=== PATIENT | female | born 1970 | race Caucasian/White ===

== ENCOUNTER 2023-01-06 14:36 | Emergency (ER) | payer MEDICARE, MEDICAID ==
[2023-01-06] MEDS ORDERED: Lactated Ringers 1,000 ML IV ONE (15:00)
[2023-01-06 15:50] LABS: BASOPHILS PERCENT AUTO 0.3 % (0.0-1.5); EOSINOPHILS ABSOLUTE AUTO 0.2 K/uL (0.0-0.7); HEMATOCRIT 44.1 % (36.0-46.0); LYMPHOCYTES ABSOLUTE AUTO 1.9 K/uL (0.6-2.4); LYMPHOCYTES PERCENT AUTO 32.1 % (16.0-40.0); MEAN CORPUSCULAR HEMOGLOBIN 30.5 pg (27.0-32.0); MEAN CORPUSCULAR VOLUME 89.8 fL (80.0-98.0); MONOCYTES ABSOLUTE AUTO 0.5 K/uL (0.0-0.8); NEUTROPHILS ABSOLUTE AUTO 3.3 K/uL (1.4-5.7); NEUTROPHILS PERCENT AUTO 55.6 % (48.0-80.0); NRBC ABSOLUTE 0 K/uL; PLATELET COUNT,PLT 266 K/uL (150-400); RED BLOOD CELL COUNT 4.91 M/uL (4.30-5.90); WHITE BLOOD CELL COUNT,WBC 5.99 K/uL (4.0-11.0)
[2023-01-06 16:24] LABS: A/G RATIO 0.9 (0.9-1.6); ALBUMIN 3.3 g/dL (3.4-5.0); BILIRUBIN TOTAL 0.4 mg/dL (0.2-1.0); CALCIUM 8.1 mg/dL (8.5-10.1); CARBON DIOXIDE,CO2 31.8 mmol/L (21.0-32.0); CREATININE 0.8 mg/dL (0.6-1.0); EST CRCL DRUG DOSING (CG) 74.02 mL/min; POTASSIUM,K 4.2 mmol/L (3.5-5.1); PROTEIN TOTAL,TP 7.1 g/dL (6.4-8.2)
== END 2023-01-06 18:16 | disposition home or self-care (01) ==
LOC: MW.ED 14:36
DX: R42 Dizziness and giddiness (principal); I12.9 Hypertensive chronic kidney disease with stage 1 through stage 4 chronic kidney disease, or unspecified chronic kidney disease; E11.22 Type 2 diabetes mellitus with diabetic chronic kidney disease; N18.9 Chronic kidney disease, unspecified; M06.9 Rheumatoid arthritis, unspecified; E11.40 Type 2 diabetes mellitus with diabetic neuropathy, unspecified; F17.210 Nicotine dependence, cigarettes, uncomplicated; Z88.6 Allergy status to analgesic agent; Z88.8 Allergy status to other drugs, medicaments and biological substances; Z79.82 Long term (current) use of aspirin; Z79.899 Other long term (current) drug therapy
CPT/HCPCS: 36415; 71046; 80053; 83735; 83880; 84484; 84703; 85025; 93005; 96360; 99284; J7120; 93010; 99283

== ENCOUNTER 2023-05-12 04:54 | Emergency (ER) | payer MEDICARE, MEDICAID | END 2023-05-12 07:13 | disposition left against medical advice (07) | LOC: MW.ED 04:54 | DX: Z53.21 Procedure and treatment not carried out due to patient leaving prior to being seen by health care provider (principal) ==

== ENCOUNTER 2023-05-12 19:13 | Emergency (ER) | payer MEDICARE, MEDICAID | END 2023-05-12 20:39 | disposition home or self-care (01) | LOC: MW.ED 19:13 | DX: L30.9 Dermatitis, unspecified (principal); I10 Essential (primary) hypertension; E11.40 Type 2 diabetes mellitus with diabetic neuropathy, unspecified; F17.210 Nicotine dependence, cigarettes, uncomplicated; Z88.5 Allergy status to narcotic agent; Z88.6 Allergy status to analgesic agent; Z79.82 Long term (current) use of aspirin; Z79.899 Other long term (current) drug therapy | CPT/HCPCS: 99282; 99283 ==

== ENCOUNTER 2023-06-28 08:31 | Day surgery (SDC) | payer MEDICARE, MEDICAID ==
[~2023-06-28 08:31] MED LIST: Lactated Ringers 1,000 ML IV SCH; propofoL 50 ML ONE
[2023-06-28] MEDS ORDERED: Propofol 200 MG/20 ML SDV ONE ×5 (10:01→10:46)
== END 2023-06-28 12:02 | disposition home or self-care (01) ==
LOC: MW.SDS 08:31
PROVIDERS: ATTEND Surgery
DX: D12.0 Benign neoplasm of cecum (principal); D12.2 Benign neoplasm of ascending colon; D12.6 Benign neoplasm of colon, unspecified; K62.1 Rectal polyp; K21.9 Gastro-esophageal reflux disease without esophagitis; K44.9 Diaphragmatic hernia without obstruction or gangrene; K22.89 Other specified disease of esophagus; K29.50 Unspecified chronic gastritis without bleeding; K64.8 Other hemorrhoids; E11.22 Type 2 diabetes mellitus with diabetic chronic kidney disease; I12.9 Hypertensive chronic kidney disease with stage 1 through stage 4 chronic kidney disease, or unspecified chronic kidney disease; N18.9 Chronic kidney disease, unspecified; J44.9 Chronic obstructive pulmonary disease, unspecified; G47.30 Sleep apnea, unspecified; F41.9 Anxiety disorder, unspecified; F32.A Depression, unspecified; E78.5 Hyperlipidemia, unspecified; M06.9 Rheumatoid arthritis, unspecified; E66.9 Obesity, unspecified; F17.210 Nicotine dependence, cigarettes, uncomplicated; Z87.11 Personal history of peptic ulcer disease; Z80.0 Family history of malignant neoplasm of digestive organs; Z88.5 Allergy status to narcotic agent; Z88.8 Allergy status to other drugs, medicaments and biological substances; Z79.82 Long term (current) use of aspirin; Z79.899 Other long term (current) drug therapy; Z79.85 Long-term (current) use of injectable non-insulin antidiabetic drugs; Z90.49 Acquired absence of other specified parts of digestive tract; Z68.39 Body mass index [BMI] 39.0-39.9, adult
CPT/HCPCS: 43239; 45380; 45385; 82947; J2704; J7120; 00813

== ENCOUNTER 2023-06-29 08:52 | Emergency (ER) | payer MEDICARE, MEDICAID ==
[2023-06-29] MEDS ORDERED: hydrALAZINE 20 MG/ML SDV IVPUSH ONE (09:17)
[2023-06-29 09:21] LABS: BASOPHILS ABSOLUTE AUTO 0.06 K/uL (0.00-0.20); BASOPHILS PERCENT AUTO 0.7 % (0.0-1.0); EOSINOPHILS ABSOLUTE AUTO 0.27 K/uL (0.00-0.45); EOSINOPHILS PERCENT AUTO 3.3 % (0.0-6.0); HEMATOCRIT 44.9 % (37.0-47.0); HEMOGLOBIN 16.3 g/dL (12.0-16.0); IMMATURE GRAN ABSOLUTE AUTO 0.02 K/uL (0.00-0.05); IMMATURE GRAN PERCENT AUTO 0.2 % (0.0-0.4); LYMPHOCYTES PERCENT AUTO 23.5 % (24.0-44.0); MEAN CORPUSCULAR HEMOGLOBIN 31.7 pg (28.0-32.0); MEAN CORPUSCULAR HGB CONC 36.3 g/dL (32.0-36.0); MEAN CORPUSCULAR VOLUME 87.2 fL (83.0-99.0); MEAN PLATELET VOLUME 8.9 fL (9.4-12.3); MONOCYTES ABSOLUTE AUTO 0.61 K/uL (0.00-0.80); MONOCYTES PERCENT AUTO 7.6 % (0.0-8.0); NEUTROPHILS ABSOLUTE AUTO 5.21 K/uL (1.80-7.70); NEUTROPHILS PERCENT AUTO 64.7 % (41.0-71.0); PLATELET COUNT,PLT 321 K/uL (150-400); RED BLOOD CELL COUNT 5.15 M/uL (4.10-5.30); WHITE BLOOD CELL COUNT,WBC 8.07 K/uL (3.9-11.3)
[2023-06-29 09:31] LABS: A/G RATIO 0.8 (0.9-1.6); ALBUMIN 3.7 g/dL (3.4-5.0); BILIRUBIN TOTAL 0.4 mg/dL (0.2-1.0); CALCIUM 9.3 mg/dL (8.5-10.1); CARBON DIOXIDE,CO2 28.4 mmol/L (21.0-32.0); CREATININE 0.8 mg/dL (0.6-1.0); EST CRCL DRUG DOSING (CG) 74.02 mL/min; POTASSIUM,K 3.6 mmol/L (3.5-5.1); PROTEIN TOTAL,TP 8.2 g/dL (6.4-8.2)
[2023-06-29] MEDS ORDERED: Iopamidol 755 Mg/ML 100 ML Bottle IVPUSH ONE (10:14)
== END 2023-06-29 11:19 | disposition home or self-care (01) ==
LOC: MW.ED 08:52
DX: R10.30 Lower abdominal pain, unspecified (principal); I10 Essential (primary) hypertension; E78.00 Pure hypercholesterolemia, unspecified; J44.9 Chronic obstructive pulmonary disease, unspecified; K21.9 Gastro-esophageal reflux disease without esophagitis; M06.9 Rheumatoid arthritis, unspecified; E11.9 Type 2 diabetes mellitus without complications; E66.9 Obesity, unspecified; Z68.39 Body mass index [BMI] 39.0-39.9, adult; Z88.6 Allergy status to analgesic agent; Z88.5 Allergy status to narcotic agent; Z88.8 Allergy status to other drugs, medicaments and biological substances; Z79.899 Other long term (current) drug therapy; Z79.82 Long term (current) use of aspirin; Z98.890 Other specified postprocedural states
CPT/HCPCS: 36415; 74177; 80053; 85025; 96374; 99284; J0360; Q9967

== ENCOUNTER 2023-11-12 16:44 | Emergency (ER) | payer MEDICARE, MEDICAID ==
[2023-11-12] MEDS: Sodium Chloride 0.9% 1,000 ML IV STA (17:58)
[2023-11-12] MEDS: Sodium Chloride 0.9% 2.5 ML Syringe FLUSH PRN (17:58)
[2023-11-12] MEDS: Sodium Chloride 0.9% 10 ML Syringe FLUSH PRN (17:59)
[2023-11-12 18:07] LABS: APPEARANCE,URINE CLEAR; BILIRUBIN,URINE NEGATIVE (NEGATIVE); COLOR,URINE YELLOW; GLUCOSE,URINE >=1000 mg/dL (NEGATIVE); KETONES,URINE NEGATIVE (NEGATIVE); LEUKOCYTE ESTERASE,URINE NEGATIVE (NEGATIVE); NITRITE,URINE NEGATIVE (NEGATIVE); OCCULT BLOOD,URINE NEGATIVE (NEGATIVE); PH,URINE 5.5 (5.0-8.0); PROTEIN,URINE NEGATIVE (NEGATIVE); UROBILINOGEN,URINE 0.2 EU/dL (<2.0)
[2023-11-12 18:26] LABS: BASOPHILS ABSOLUTE AUTO 0.03 K/uL (0.00-0.20); BASOPHILS PERCENT AUTO 0.5 % (0.0-1.0); EOSINOPHILS PERCENT AUTO 1.8 % (0.0-6.0); HEMATOCRIT 44.8 % (37.0-47.0); HEMOGLOBIN 15.5 g/dL (12.0-16.0); IMMATURE GRAN ABSOLUTE AUTO 0.04 K/uL (0.00-0.05); IMMATURE GRAN PERCENT AUTO 0.7 % (0.0-0.4); LYMPHOCYTES ABSOLUTE AUTO 1.35 K/uL (1.00-4.80); LYMPHOCYTES PERCENT AUTO 24.7 % (24.0-44.0); MEAN CORPUSCULAR HEMOGLOBIN 31.1 pg (28.0-32.0); MEAN CORPUSCULAR HGB CONC 34.6 g/dL (32.0-36.0); MEAN CORPUSCULAR VOLUME 89.8 fL (83.0-99.0); MONOCYTES ABSOLUTE AUTO 0.73 K/uL (0.00-0.80); MONOCYTES PERCENT AUTO 13.3 % (0.0-8.0); NEUTROPHILS ABSOLUTE AUTO 3.22 K/uL (1.80-7.70); PLATELET COUNT,PLT 315 K/uL (150-400); RED BLOOD CELL COUNT 4.99 M/uL (4.10-5.30); WHITE BLOOD CELL COUNT,WBC 5.47 K/uL (3.9-11.3)
[2023-11-12 18:54] LABS: INR 0.96 (0.86-1.11)
[2023-11-12 19:14] LABS: A/G RATIO 0.8 (0.9-1.6); ALBUMIN 3.4 g/dL (3.4-5.0); BILIRUBIN TOTAL 0.3 mg/dL (0.2-1.0); CALCIUM 9.2 mg/dL (8.5-10.1); CARBON DIOXIDE,CO2 29.3 mmol/L (21.0-32.0); CREATININE 0.9 mg/dL (0.6-1.0); EST CRCL DRUG DOSING (CG) 65.8 mL/min; POTASSIUM,K 4.5 mmol/L (3.5-5.1); PROTEIN TOTAL,TP 7.5 g/dL (6.4-8.2)
[2023-11-12] MEDS: Iopamidol 755 MG/ML 500 ML Multipack Bottle IVPUSH STA (19:37)
== END 2023-11-12 20:22 | disposition left against medical advice (07) ==
LOC: MW.ED 16:44
DX: B43.2 Subcutaneous pheomycotic abscess and cyst (principal); I10 Essential (primary) hypertension; J44.9 Chronic obstructive pulmonary disease, unspecified; E66.9 Obesity, unspecified; E11.9 Type 2 diabetes mellitus without complications; Z88.6 Allergy status to analgesic agent; Z88.8 Allergy status to other drugs, medicaments and biological substances; Z79.899 Other long term (current) drug therapy; Z90.49 Acquired absence of other specified parts of digestive tract; Z90.710 Acquired absence of both cervix and uterus; Z68.39 Body mass index [BMI] 39.0-39.9, adult; X50.1XXA Overexertion from prolonged static or awkward postures, initial encounter
CPT/HCPCS: 36415; 74177; 80053; 81003; 83690; 85025; 85610; 96360; 99284; J3490; J7030; Q9967

== ENCOUNTER 2023-11-23 10:43 | Emergency (ER) | payer MEDICARE, MEDICAID ==
[2023-11-23] MEDS: Ondansetron 4 MG/2 ML SDV IVPUSH ONE (11:36)
[2023-11-23 11:56] LABS: A/G RATIO 0.8 (0.9-1.6); ALBUMIN 3.4 g/dL (3.4-5.0); BILIRUBIN TOTAL 0.3 mg/dL (0.2-1.0); CALCIUM 7.9 mg/dL (8.5-10.1); CREATININE 1.7 mg/dL (0.6-1.0); EST CRCL DRUG DOSING (CG) 34.44 mL/min; POTASSIUM,K 3.6 mmol/L (3.5-5.1); PROTEIN TOTAL,TP 7.6 g/dL (6.4-8.2)
[2023-11-23 12:03] LABS: BASOPHILS ABSOLUTE AUTO 0.04 K/uL (0.00-0.20); BASOPHILS PERCENT AUTO 0.5 % (0.0-1.0); EOSINOPHILS ABSOLUTE AUTO 0.14 K/uL (0.00-0.45); EOSINOPHILS PERCENT AUTO 1.8 % (0.0-6.0); HEMATOCRIT 47.1 % (37.0-47.0); HEMOGLOBIN 16.2 g/dL (12.0-16.0); IMMATURE GRAN ABSOLUTE AUTO 0.02 K/uL (0.00-0.05); IMMATURE GRAN PERCENT AUTO 0.3 % (0.0-0.4); LYMPHOCYTES ABSOLUTE AUTO 1.26 K/uL (1.00-4.80); MEAN CORPUSCULAR HEMOGLOBIN 30.7 pg (28.0-32.0); MEAN CORPUSCULAR HGB CONC 34.4 g/dL (32.0-36.0); MEAN CORPUSCULAR VOLUME 89.2 fL (83.0-99.0); MEAN PLATELET VOLUME 9.4 fL (9.4-12.3); MONOCYTES ABSOLUTE AUTO 0.86 K/uL (0.00-0.80); MONOCYTES PERCENT AUTO 10.9 % (0.0-8.0); NEUTROPHILS ABSOLUTE AUTO 5.56 K/uL (1.80-7.70); NEUTROPHILS PERCENT AUTO 70.5 % (41.0-71.0); PLATELET COUNT,PLT 346 K/uL (150-400); RED BLOOD CELL COUNT 5.28 M/uL (4.10-5.30); WHITE BLOOD CELL COUNT,WBC 7.88 K/uL (3.9-11.3)
[2023-11-23] MEDS: Iopamidol 755 Mg/ML 100 ML Bottle IVPUSH ONE (12:13)
[2023-11-23] MEDS: Sodium Chloride 0.9% 1,000 ML IV ONE ×2 (12:39→14:13)
[2023-11-23] MEDS: Cephalexin 500 MG Cap PO STA (14:13)
[2023-11-23] MEDS: Doxycycline 100 MG Cap PO STA (14:13)
[2023-11-23 16:09] LABS: CALCIUM 7.3 mg/dL (8.5-10.1); CARBON DIOXIDE,CO2 26.7 mmol/L (21.0-32.0); CREATININE 1.2 mg/dL (0.6-1.0); EST CRCL DRUG DOSING (CG) 48.79 mL/min; POTASSIUM,K 3.4 mmol/L (3.5-5.1)
== END 2023-11-23 16:34 | disposition home or self-care (01) ==
LOC: MW.ED 10:43
DX: L03.311 Cellulitis of abdominal wall (principal); L72.3 Sebaceous cyst; N17.9 Acute kidney failure, unspecified; I10 Essential (primary) hypertension; J44.9 Chronic obstructive pulmonary disease, unspecified; E11.9 Type 2 diabetes mellitus without complications; E66.9 Obesity, unspecified; Z88.6 Allergy status to analgesic agent; Z88.5 Allergy status to narcotic agent; Z90.710 Acquired absence of both cervix and uterus; Z68.41 Body mass index [BMI] 40.0-44.9, adult; Z75.8 Other problems related to medical facilities and other health care
CPT/HCPCS: 36415; 74177; 80048; 80053; 85025; 96361; 96374; 99284; A9270; J2405; J7030; Q9967

== ENCOUNTER 2024-05-03 09:09 | Emergency (ER) | payer MEDICARE, MEDICAID ==
[2024-05-03] MEDS: Sulfamethoxazole/Trimethoprim 800-160 MG Tab PO ONE (10:41)
[2024-05-03 11:06] LABS: BASOPHILS ABSOLUTE AUTO 0.02 K/uL (0.00-0.20); BASOPHILS PERCENT AUTO 0.2 % (0.0-1.0); EOSINOPHILS ABSOLUTE AUTO 0.13 K/uL (0.00-0.45); EOSINOPHILS PERCENT AUTO 1.5 % (0.0-6.0); HEMATOCRIT 40.3 % (37.0-47.0); HEMOGLOBIN 14.1 g/dL (12.0-16.0); IMMATURE GRAN ABSOLUTE AUTO 0.05 K/uL (0.00-0.05); IMMATURE GRAN PERCENT AUTO 0.6 % (0.0-0.4); LYMPHOCYTES ABSOLUTE AUTO 1.44 K/uL (1.00-4.80); LYMPHOCYTES PERCENT AUTO 16.3 % (24.0-44.0); MEAN CORPUSCULAR HEMOGLOBIN 33.4 pg (28.0-32.0); MEAN CORPUSCULAR VOLUME 95.5 fL (83.0-99.0); MEAN PLATELET VOLUME 8.8 fL (9.4-12.3); MONOCYTES ABSOLUTE AUTO 0.94 K/uL (0.00-0.80); MONOCYTES PERCENT AUTO 10.7 % (0.0-8.0); NEUTROPHILS ABSOLUTE AUTO 6.23 K/uL (1.80-7.70); NEUTROPHILS PERCENT AUTO 70.7 % (41.0-71.0); PLATELET COUNT,PLT 285 K/uL (150-400); RED BLOOD CELL COUNT 4.22 M/uL (4.10-5.30); WHITE BLOOD CELL COUNT,WBC 8.81 K/uL (3.9-11.3)
[2024-05-03 11:29] LABS: A/G RATIO 0.8 (0.9-1.6); ALBUMIN 3.3 g/dL (3.4-5.0); BILIRUBIN TOTAL 0.5 mg/dL (0.2-1.0); CALCIUM 9.3 mg/dL (8.5-10.1); CARBON DIOXIDE,CO2 30.9 mmol/L (21.0-32.0); CREATININE 1.4 mg/dL (0.6-1.0); EST CRCL DRUG DOSING (CG) 41.82 mL/min; PROTEIN TOTAL,TP 7.6 g/dL (6.4-8.2)
[2024-05-03 11:32] LABS: LACTIC ACID 1.2 mmol/L (0.4-2.0); POTASSIUM,K 4.4 mmol/L (3.5-5.1)
[2024-05-03] MEDS: Amoxicillin/Clavulanate K 875-125 MG Tab PO ONE (13:20)
== END 2024-05-03 13:24 | disposition home or self-care (01) ==
LOC: MW.ED 09:09
DX: T81.49XA Infection following a procedure, other surgical site, initial encounter (principal); L03.311 Cellulitis of abdominal wall; E11.9 Type 2 diabetes mellitus without complications; Z75.8 Other problems related to medical facilities and other health care; I10 Essential (primary) hypertension; E78.00 Pure hypercholesterolemia, unspecified; J44.9 Chronic obstructive pulmonary disease, unspecified; E66.9 Obesity, unspecified; Z79.899 Other long term (current) drug therapy; Z79.84 Long term (current) use of oral hypoglycemic drugs; Z88.5 Allergy status to narcotic agent; Z88.6 Allergy status to analgesic agent; Z88.8 Allergy status to other drugs, medicaments and biological substances
CPT/HCPCS: 36415; 74176; 80053; 83605; 85025; 87040; 99284; A9270

== ENCOUNTER 2024-05-18 15:02 | Emergency (ER) | payer MEDICARE, MEDICAID | END 2024-05-18 18:26 | disposition left against medical advice (07) | LOC: MW.ED 15:02 | DX: Z53.21 Procedure and treatment not carried out due to patient leaving prior to being seen by health care provider (principal) ==

== ENCOUNTER 2024-05-19 11:33 | Emergency (ER) | payer MEDICARE, MEDICAID ==
[2024-05-19] MEDS ORDERED: Sodium Chloride 0.9% 2.5 ML Syringe FLUSH PRN (11:59)
[2024-05-19] MEDS ORDERED: Sodium Chloride 0.9% 10 ML Syringe FLUSH PRN (11:59)
[2024-05-19 12:44] LABS: BASOPHILS ABSOLUTE AUTO 0.04 K/uL (0.00-0.20); BASOPHILS PERCENT AUTO 0.6 % (0.0-1.0); EOSINOPHILS PERCENT AUTO 1.4 % (0.0-6.0); HEMATOCRIT 43.4 % (37.0-47.0); HEMOGLOBIN 14.6 g/dL (12.0-16.0); IMMATURE GRAN ABSOLUTE AUTO 0.03 K/uL (0.00-0.05); IMMATURE GRAN PERCENT AUTO 0.4 % (0.0-0.4); LYMPHOCYTES ABSOLUTE AUTO 1.87 K/uL (1.00-4.80); LYMPHOCYTES PERCENT AUTO 25.8 % (24.0-44.0); MEAN CORPUSCULAR HGB CONC 33.6 g/dL (32.0-36.0); MEAN CORPUSCULAR VOLUME 98.2 fL (83.0-99.0); MEAN PLATELET VOLUME 8.8 fL (9.4-12.3); MONOCYTES ABSOLUTE AUTO 0.56 K/uL (0.00-0.80); MONOCYTES PERCENT AUTO 7.7 % (0.0-8.0); NEUTROPHILS ABSOLUTE AUTO 4.65 K/uL (1.80-7.70); NEUTROPHILS PERCENT AUTO 64.1 % (41.0-71.0); PLATELET COUNT,PLT 300 K/uL (150-400); RED BLOOD CELL COUNT 4.42 M/uL (4.10-5.30); WHITE BLOOD CELL COUNT,WBC 7.25 K/uL (3.9-11.3)
[2024-05-19 13:22] LABS: A/G RATIO 0.9 (0.9-1.6); ALBUMIN 3.5 g/dL (3.4-5.0); BILIRUBIN TOTAL 0.4 mg/dL (0.2-1.0); CALCIUM 9.5 mg/dL (8.5-10.1); CARBON DIOXIDE,CO2 27.1 mmol/L (21.0-32.0); CREATININE 0.9 mg/dL (0.6-1.0); EST CRCL DRUG DOSING (CG) 65.05 mL/min; POTASSIUM,K 4.2 mmol/L (3.5-5.1); PROTEIN TOTAL,TP 7.5 g/dL (6.4-8.2)
[2024-05-19] MEDS: Iopamidol 755 MG/ML 500 ML Multipack Bottle IVPUSH STA (13:55)
[2024-05-19] MEDS: Acetaminophen/HYDROcodone 325-10 MG Tab PO ONE (15:06)
== END 2024-05-19 15:37 | disposition home or self-care (01) ==
LOC: MW.ED 11:33
DX: S31.109A Unspecified open wound of abdominal wall, unspecified quadrant without penetration into peritoneal cavity, initial encounter (principal); I10 Essential (primary) hypertension; E78.00 Pure hypercholesterolemia, unspecified; J44.9 Chronic obstructive pulmonary disease, unspecified; E11.40 Type 2 diabetes mellitus with diabetic neuropathy, unspecified; E66.9 Obesity, unspecified; K21.9 Gastro-esophageal reflux disease without esophagitis; F17.210 Nicotine dependence, cigarettes, uncomplicated; Z79.899 Other long term (current) drug therapy; Z79.84 Long term (current) use of oral hypoglycemic drugs; Z88.6 Allergy status to analgesic agent; Z88.5 Allergy status to narcotic agent; Z68.37 Body mass index [BMI] 37.0-37.9, adult; X58.XXXA Exposure to other specified factors, initial encounter
CPT/HCPCS: 36415; 74177; 80053; 85025; 99284; A9270; Q9967

== ENCOUNTER 2024-07-06 12:59 | Emergency (ER) | payer MEDICARE, MEDICAID ==
[2024-07-06] MEDS: Acetaminophen 500 MG Tab PO ONE (14:54)
== END 2024-07-06 15:27 | disposition home or self-care (01) ==
LOC: MW.ED 12:59
DX: S92.351A Displaced fracture of fifth metatarsal bone, right foot, initial encounter for closed fracture (principal); E78.00 Pure hypercholesterolemia, unspecified; I10 Essential (primary) hypertension; J44.9 Chronic obstructive pulmonary disease, unspecified; E11.9 Type 2 diabetes mellitus without complications; E66.9 Obesity, unspecified; F17.210 Nicotine dependence, cigarettes, uncomplicated; Z68.37 Body mass index [BMI] 37.0-37.9, adult; Z79.899 Other long term (current) drug therapy; Z88.5 Allergy status to narcotic agent; Z88.6 Allergy status to analgesic agent; Z88.8 Allergy status to other drugs, medicaments and biological substances; W10.8XXA Fall (on) (from) other stairs and steps, initial encounter
CPT/HCPCS: 73610; 73620; 99283; A9270

== ENCOUNTER 2024-07-11 14:54 | Emergency (ER) | payer MEDICARE, MEDICAID | END 2024-07-11 16:43 | disposition left against medical advice (07) | LOC: MW.ED 14:54 | DX: M79.671 Pain in right foot (principal); I10 Essential (primary) hypertension; J44.9 Chronic obstructive pulmonary disease, unspecified; E11.9 Type 2 diabetes mellitus without complications; E66.9 Obesity, unspecified; Z90.49 Acquired absence of other specified parts of digestive tract; Z90.710 Acquired absence of both cervix and uterus; Z88.5 Allergy status to narcotic agent; Z88.6 Allergy status to analgesic agent; Z88.8 Allergy status to other drugs, medicaments and biological substances; Z79.891 Long term (current) use of opiate analgesic; Z79.899 Other long term (current) drug therapy; Z75.8 Other problems related to medical facilities and other health care | CPT/HCPCS: 99283 ==

== ENCOUNTER 2024-07-22 21:48 | Emergency (ER) | payer MEDICARE, MEDICAID | END 2024-07-22 23:50 | disposition other institution (70) | LOC: MW.ED 21:48 | DX: F10.920 Alcohol use, unspecified with intoxication, uncomplicated (principal); I10 Essential (primary) hypertension; J44.9 Chronic obstructive pulmonary disease, unspecified; E78.00 Pure hypercholesterolemia, unspecified; E66.9 Obesity, unspecified; E11.9 Type 2 diabetes mellitus without complications; F17.210 Nicotine dependence, cigarettes, uncomplicated; Z88.5 Allergy status to narcotic agent; Z88.6 Allergy status to analgesic agent; Z88.8 Allergy status to other drugs, medicaments and biological substances; Z79.899 Other long term (current) drug therapy; Z90.49 Acquired absence of other specified parts of digestive tract; Z90.710 Acquired absence of both cervix and uterus; Z68.38 Body mass index [BMI] 38.0-38.9, adult | CPT/HCPCS: 99285 ==

== ENCOUNTER 2024-07-30 08:41 | Day surgery (SDC) | payer MEDICARE, MEDICAID ==
[~2024-07-30 08:41] MED LIST changes: +Albuterol 0.083% 2.5 MG/3 ML Neb Soln NEB PRN; -Lactated Ringers 1,000 ML IV SCH; +Metoclopramide 10 MG/2 ML SDV IVPUSH PRN; +Morphine 2 MG/ML SYRINGE IVPUSH PRN; +Naloxone 0.4 MG/ML SDV IVPUSH PRN; +Ondansetron 4 MG/2 ML SDV IVPUSH PRN; +Phenylephrine HCl In 0.9% NaCl 1 MG/10 ML Syringe IVPUSH PRN; +fentaNYL 50 MCG/ML SDV IVPUSH PRN; -propofoL 50 ML ONE
[2024-07-30] MEDS ORDERED: Bupivacaine 0.5% 30 ML SDV ONE (09:11)
[2024-07-30] MEDS ORDERED: ceFAZolin 2 GM in Sodium Chloride 0.9% 50 ML IV ONE (10:00)
[2024-07-30] MEDS ORDERED: Midazolam 1 MG/ML 2 ML SDV ONE (10:07)
[2024-07-30] MEDS ORDERED: Propofol 200 MG/20 ML SDV ONE (10:07)
[2024-07-30] MEDS ORDERED: fentaNYL 100 MCG/2 ML SDV ONE (10:07)
[2024-07-30] MEDS ORDERED: Lidocaine 2% 5 ML SDV ONE (10:08)
[2024-07-30] MEDS: Lactated Ringers 1,000 ML IV SCH (10:09)
[2024-07-30] MEDS ORDERED: ePHEDrine 50 MG/ML SDV ONE (10:41)
[2024-07-30] MEDS ORDERED: ceFAZolin 1 GM Vial ONE (10:48)
[2024-07-30] MEDS ORDERED: Ondansetron 4 MG/2 ML SDV ONE (13:13)
[2024-07-30] MEDS: HYDROmorphone 1 MG/ML Syringe IVPUSH PRN (13:45)
== END 2024-07-30 15:30 | disposition home or self-care (01) ==
LOC: MW.SDS 08:41
PROVIDERS: ATTEND Podiatrist Foot & Ankle Surgery
DX: S92.351A Displaced fracture of fifth metatarsal bone, right foot, initial encounter for closed fracture (principal); J44.9 Chronic obstructive pulmonary disease, unspecified; I10 Essential (primary) hypertension; E11.9 Type 2 diabetes mellitus without complications; F31.9 Bipolar disorder, unspecified; F90.9 Attention-deficit hyperactivity disorder, unspecified type; K21.9 Gastro-esophageal reflux disease without esophagitis; E78.00 Pure hypercholesterolemia, unspecified; F41.9 Anxiety disorder, unspecified; Z79.899 Other long term (current) drug therapy; Z88.5 Allergy status to narcotic agent; Z88.6 Allergy status to analgesic agent; X58.XXXA Exposure to other specified factors, initial encounter
CPT/HCPCS: 28485; J0131; J0665; J0690; J1171; J2250; J2405; J2704; J3010; J7120; C1713; J3490

== ENCOUNTER 2025-03-21 18:26 | Emergency (ER) | payer MEDICARE, MEDICAID ==
[2025-03-21 19:23] LABS: APPEARANCE,URINE CLEAR; GLUCOSE,URINE >=1000 mg/dL (NEGATIVE); OCCULT BLOOD,URINE NEGATIVE (NEGATIVE)
[2025-03-21 19:35] LABS: BASOPHILS ABSOLUTE AUTO 0.05 K/uL (0.00-0.20); BASOPHILS PERCENT AUTO 0.4 % (0.0-1.0); EOSINOPHILS ABSOLUTE AUTO 0.19 K/uL (0.00-0.45); EOSINOPHILS PERCENT AUTO 1.6 % (0.0-6.0); IMMATURE GRAN ABSOLUTE AUTO 0.04 K/uL (0.00-0.05); IMMATURE GRAN PERCENT AUTO 0.3 % (0.0-0.4); LYMPHOCYTES ABSOLUTE AUTO 1.81 K/uL (1.00-4.80); LYMPHOCYTES PERCENT AUTO 15.4 % (24.0-44.0); MEAN PLATELET VOLUME 9.0 fL (9.4-12.3); MONOCYTES ABSOLUTE AUTO 0.89 K/uL (0.00-0.80); MONOCYTES PERCENT AUTO 7.6 % (0.0-8.0); NEUTROPHILS ABSOLUTE AUTO 8.78 K/uL (1.80-7.70); NEUTROPHILS PERCENT AUTO 74.7 % (41.0-71.0); NRBC ABSOLUTE 0.00 K/uL (0.00-0.02); NRBC PERCENT 0.0 /100WBC (0.0-0.2); PLATELET COUNT,PLT 343 K/uL (150-400); RED BLOOD CELL COUNT 4.64 M/uL (4.10-5.30); WHITE BLOOD CELL COUNT,WBC 11.76 K/uL (3.9-11.3)
[2025-03-21] MEDS: Iopamidol 755 Mg/ML 100 ML Bottle IVPUSH ONE (19:52)
[2025-03-21 20:04] LABS: ALANINE AMINOTRANSFERASE,ALT 45 IU/L (14-63); ASPARTATE AMNIOTRANSFERASE,AST 26 IU/L (15-37); BILIRUBIN TOTAL 0.7 mg/dL (0.2-1.0); BLOOD UREA NITROGEN,BUN 19 mg/dL (7.0-18.0); CARBON DIOXIDE,CO2 28.2 mmol/L (21.0-32.0); CHLORIDE,CL 95 mmol/L (98-107); CREATININE 1.1 mg/dL (0.6-1.0); EST CRCL DRUG DOSING (CG) 52.61 mL/min; GLUCOSE RANDOM 161 mg/dL (74-106); POTASSIUM,K 3.5 mmol/L (3.5-5.1); PRO B-TYPE NATRIUR PEPT,BNPPRO 21 pg/mL (0-125); PROTEIN TOTAL,TP 8.8 g/dL (6.4-8.2); SODIUM,NA 136 mmol/L (136-145)
[2025-03-21 20:11] LABS: A/G RATIO 1.1 (0.9-1.6); ESTIMATED GFR 60 mL/min (>60)
== END 2025-03-21 21:42 | disposition home or self-care (01) ==
LOC: MW.ED 18:26
DX: D35.00 Benign neoplasm of unspecified adrenal gland (principal); F17.200 Nicotine dependence, unspecified, uncomplicated; E78.00 Pure hypercholesterolemia, unspecified; I10 Essential (primary) hypertension; K21.9 Gastro-esophageal reflux disease without esophagitis; E11.9 Type 2 diabetes mellitus without complications; E66.9 Obesity, unspecified; Z88.8 Allergy status to other drugs, medicaments and biological substances; Z88.5 Allergy status to narcotic agent; Z79.899 Other long term (current) drug therapy; Z90.49 Acquired absence of other specified parts of digestive tract; Z90.710 Acquired absence of both cervix and uterus
CPT/HCPCS: 36415; 70491; 71275; 80053; 81003; 83690; 83735; 83880; 84484; 85025; 93005; 96361; 96374; 99284; J1100; J7030; Q9967; 99283

== ENCOUNTER 2025-06-30 19:35 | Emergency (ER) | payer MEDICARE, MEDICAID ==
[2025-06-30 20:29] LABS: BASOPHILS ABSOLUTE AUTO 0.02 K/uL (0.00-0.20); BASOPHILS PERCENT AUTO 0.4 % (0.0-1.0); EOSINOPHILS ABSOLUTE AUTO 0.05 K/uL (0.00-0.45); EOSINOPHILS PERCENT AUTO 0.9 % (0.0-6.0); IMMATURE GRAN ABSOLUTE AUTO 0.02 K/uL (0.00-0.05); IMMATURE GRAN PERCENT AUTO 0.4 % (0.0-0.4); LYMPHOCYTES ABSOLUTE AUTO 1.39 K/uL (1.00-4.80); LYMPHOCYTES PERCENT AUTO 25.1 % (24.0-44.0); MEAN PLATELET VOLUME 8.7 fL (9.4-12.3); MONOCYTES ABSOLUTE AUTO 0.29 K/uL (0.00-0.80); MONOCYTES PERCENT AUTO 5.2 % (0.0-8.0); NEUTROPHILS ABSOLUTE AUTO 3.77 K/uL (1.80-7.70); NEUTROPHILS PERCENT AUTO 68.0 % (41.0-71.0); NRBC ABSOLUTE 0.00 K/uL (0.00-0.02); NRBC PERCENT 0.0 /100WBC (0.0-0.2); PLATELET COUNT,PLT 332 K/uL (150-400); RED BLOOD CELL COUNT 4.00 M/uL (4.10-5.30); WHITE BLOOD CELL COUNT,WBC 5.54 K/uL (3.9-11.3)
[2025-06-30 20:43] LABS: A/G RATIO 1.3 (0.9-1.6); ALANINE AMINOTRANSFERASE,ALT 58 IU/L (14-63); ASPARTATE AMNIOTRANSFERASE,AST 38 IU/L (15-37); BILIRUBIN TOTAL 0.5 mg/dL (0.2-1.0); BLOOD UREA NITROGEN,BUN 19 mg/dL (7.0-18.0); CARBON DIOXIDE,CO2 32.7 mmol/L (21.0-32.0); CHLORIDE,CL 99 mmol/L (98-107); CREATININE 1.6 mg/dL (0.6-1.0); EST CRCL DRUG DOSING (CG) 36.17 mL/min; GLUCOSE RANDOM 142 mg/dL (74-106); POTASSIUM,K 4.9 mmol/L (3.5-5.1); PROTEIN TOTAL,TP 7.7 g/dL (6.4-8.2); SODIUM,NA 137 mmol/L (136-145)
[2025-06-30 20:56] LABS: ESTIMATED GFR 38 mL/min (>60); ETHANOL BLOOD MEDICAL < 3.0 mg/dL
== END 2025-06-30 23:17 | disposition home or self-care (01) ==
LOC: MW.ED 19:35
DX: I95.89 Other hypotension (principal); M54.41 Lumbago with sciatica, right side; E86.0 Dehydration; I10 Essential (primary) hypertension; E11.40 Type 2 diabetes mellitus with diabetic neuropathy, unspecified; E66.9 Obesity, unspecified; E78.00 Pure hypercholesterolemia, unspecified; J44.9 Chronic obstructive pulmonary disease, unspecified; M19.90 Unspecified osteoarthritis, unspecified site; Z79.899 Other long term (current) drug therapy; Z79.51 Long term (current) use of inhaled steroids; Z88.8 Allergy status to other drugs, medicaments and biological substances; Z90.49 Acquired absence of other specified parts of digestive tract; Z90.710 Acquired absence of both cervix and uterus; Z68.33 Body mass index [BMI] 33.0-33.9, adult
CPT/HCPCS: 36415; 70450; 71045; 72131; 80053; 80307; 83690; 84484; 85025; 93005; 96360; 99284; A9270; J7030